=== PATIENT | male | born 1945 | race Caucasian/White ===

== ENCOUNTER 2018-05-26 12:40 | Inpatient (IN) ==
--- NOTE | 2018-05-26 12:43 | Emergency Department Note ---
Disposition Clinical Impression: Pre-syncope, Bradycardia Disposition: Admitted As Inpatient Condition: Good General Adult HPI - General Stated complaint: syncope Time Seen by Provider: 05/26/18 12:42 - Related Data Home Medications Medication Instructions Recorded Confirmed Ferrous Sulfate [Iron] 325 mg PO QAM 10/06/17 05/26/18 Folic Acid 1 mg PO DAILY 10/06/17 05/26/18 Lisinopril [Zestril] 20 mg PO DAILY 10/06/17 05/26/18 Gabapentin [Neurontin] 300 mg PO TID PRN 11/21/17 05/26/18 Aspirin [Adult Aspirin Regimen] 81 mg PO DAILY 11/23/17 05/26/18 Cholecalciferol (Vitamin D3) 2,000 unit PO DAILY 11/23/17 05/26/18 [Vitamin D] Cyanocobalamin (Vitamin B-12) 500 mcg PO DAILY 11/23/17 05/26/18 [Vitamin B12] Lovastatin [Lovastatin] 60 mg PO DAILY 05/26/18 05/26/18 amLODIPine [Norvasc] 54 mg PO DAILY 05/26/18 05/26/18 Allergies Allergy/AdvReac Type Severity Reaction Status Date / Time hydrocodone [From Vicodin] AdvReac Vomiting Verified 05/26/18 14:33 meperidine [From Demerol] AdvReac Vomiting Verified 05/26/18 14:33 Oxycodone [From Percocet] AdvReac Vomiting Verified 05/26/18 14:33 Past Medical History - Past Medical History Medical history: Reports: hyperlipidemia, hypertension, kidney stones, migraine , renal disease, other Surgical history: Reports: cholecystectomy, herniorrhaphy, other Psychiatric history: Reports: no psych history - Social History Smoking Status: Never smoker Smokeless Tobacco Status: No Alcohol use: Reports: none Drug use: Reports: none Course Vital Signs Temperature 97.7 F 05/26/18 12:52 Pulse Rate 51 05/26/18 12:52 Respiratory Rate 05/26/18 12:52 Blood Pressure 117/72 05/26/18 12:52 O2 Sat by Pulse Oximetry 99 05/26/18 12:52 Temperature 98.5 F 05/26/18 15:29 Pulse Rate 61 05/26/18 16:42 Respiratory Rate 18 05/26/18 15:29 Blood Pressure 124/71 05/26/18 16:42 O2 Sat by Pulse Oximetry 97 05/26/18 15:36 Oxygen Delivery Oxygen Delivery Room Air Medical Decision Making - Lab Data Result diagrams: 05/26/18 13:03 05/26/18 13:03 Lab Results 05/26/18 05/26/18 05/26/18 Range/Units 12:57 13:03 13:03 WBC 7.1 (4.3-11.1) K/mcL RBC 4.49 (4.19-5.50) M/mcL Hgb 14.6 (12.9-16.9) g/dL Hct 42.6 (37.5-50.1) % MCV 94.9 (83.0-100.0) fL MCH 32.5 (28.0-33.3) pg MCHC 34.3 (31.6-35.5) g/dL RDW 13.7 (11.5-14.5) % Plt Count 224 (140-400) K/mcL MPV 11.2 (9.4-12.4) fL Immature Gran % 0.3 (0-4) % Seg Neutrophils % 62.2 % Lymphocytes % 24.9 % Monocytes % 9.7 % Eosinophils % 2.3 % Basophils % 0.6 % Neutrophils # 4.4 (1.6-8.9) K/mcL Lymphocytes # 1.8 (0.6-4.6) K/mcL Monocytes # 0.7 (0.0-1.3) K/mcL Eosinophils # 0.2 (0.0-0.6) K/mcL Basophils # 0.0 (0.0-0.2) K/mcL Sodium 141 (136-145) mEq/L Potassium 4.2 (3.5-5.1) mEq/L Chloride 111 H (98-107) mEq/L Carbon Dioxide 22 L (23-29) mEq/L BUN 18 (8-23) mg/dL Creatinine 1.58 H (0.70-1.30) mg/dL Est GFR ( Amer) 52 L (> 60) Est GFR (Non-Af Amer) 43 L (> 60) BUN/Creatinine Ratio 11 (6-26) Glucose 112 H (70-105) mg/dL POC Glucose 117 H (70-99) mg/dL Calculated Osmolality 295 (280-300) Calcium 9.2 (8.6-10.3) mg/dL Troponin I < 0.03 (< 0.04) ng/mL Attestation Statement - Attestation Attestation: I examined this patient and my medical decision-making was reviewed with the Resident Physician. I agree with the documented findings, disposition and treatment plan as described except to the extent set forth below. [id number] time provided Patient arrives by EMS. EMS report states the patient was standing outside a food bank when he became weak. He became pale and diaphoretic. Upon arrival the patient does not appear in any acute distress. He was evaluated in conjunction with the resident physician Dr. Ashley Quiroz
--- NOTE | 2018-05-26 12:54 | Emergency Department Note ---
Disposition Clinical Impression: Pre-syncope, Bradycardia Disposition: Admitted As Inpatient Condition: Good General Adult HPI - General Chief complaint: ED Syncope Stated complaint: syncope Time Seen by Provider: 05/26/18 12:42 Source: patient, family, EMS Mode of arrival: EMS Limitations: no limitations Nursing Notes Reviewed: Yes Vital Signs Reviewed: Yes - History of Present Illness HPI Narrative: 72-year-old male with significant past medical history of hypertension currently taking the lisinopril presenting to the emergency department with chief complaint of presyncope. Patient states today he was standing outside of the food bank when he had sudden onset of weakness and felt like he was going to pass out. Denies any chest pain, shortness of breath. Patient states he has had presyncopal episodes in the past but they have spontaneously resolved. Has never been worked up. Patient denies any cardiac history. At this time patient states he is still feeling slightly weak but denies any chest pain, shortness breath, dizziness or headache. - Related Data Home Medications Medication Instructions Recorded Confirmed Ferrous Sulfate [Iron] 325 mg PO QAM 10/06/17 11/23/17 Folic Acid 1 mg PO DAILY 10/06/17 11/23/17 Lisinopril [Zestril] 20 mg PO DAILY 10/06/17 11/23/17 Lovastatin [Altoprev] 60 mg PO QAM 10/06/17 11/23/17 Gabapentin [Neurontin] 600 mg PO TID 11/21/17 11/23/17 Amlodipine Besylate/Benazepril 1 each PO DAILY 11/23/17 11/23/17 [Lotrel 10-20 mg Capsule] Aspirin [Adult Aspirin Regimen] 81 mg PO 11/23/17 Cholecalciferol (Vitamin D3) 2,000 unit PO 11/23/17 11/23/17 [Vitamin D] Cyanocobalamin (Vitamin B-12) 500 mcg PO DAILY 11/23/17 11/23/17 [Vitamin B12] Previous Rx's Medication Instructions Recorded Tramadol HCl [Ultram] 50 mg PO QID PRN 5 Days #20 tab 11/21/17 Ondansetron ODT [Zofran ODT] 4 mg SL Q4HR PRN #15 tab.rapdis 11/23/17 Allergies Allergy/AdvReac Type Severity Reaction Status Date / Time hydrocodone [From Vicodin] AdvReac Vomiting Verified 11/21/17 07:15 meperidine [From Demerol] AdvReac Vomiting Verified 11/21/17 07:15 Oxycodone [From Percocet] AdvReac Vomiting Verified 11/21/17 07:15 All systems ED: reviewed and negative except as stated. Constitutional: Reports: weakness. Denies: fever, chills Eyes: Reports: as per HPI ENT ED: Reports: as per HPI Cardiovascular: Denies: chest pain, palpitations, dyspnea on exertion Respiratory: Denies: cough, dyspnea, wheezes Gastrointestinal: Denies: abdominal pain, nausea, vomiting Genitourinary: Reports: as per HPI Musculoskeletal: Reports: as per HPI Integumentary: Reports: as per HPI Neurological: Reports: weakness. Denies: headache, numbness, paresthesias Psychiatric: Reports: as per HPI Endocrine: Reports: as per HPI Hematological/Lymphatic: Reports: as per HPI Allergic/Immunologic: Reports: as per HPI Past Medical History - Past Medical History Attestation: Yes The following information was validated with the patient. Medical history: Reports: hyperlipidemia, hypertension, kidney stones, migraine , renal disease, other Surgical history: Reports: cholecystectomy, herniorrhaphy, other Psychiatric history: Reports: no psych history - Social History Smoking Status: Never smoker Smokeless Tobacco Status: No Alcohol use: Reports: none Drug use: Reports: none Physical Exam - General Limitations: no limitations General appearance: alert, in no apparent distress - Head Head exam: atraumatic, normocephalic, normal inspection - Eye Eye exam: Present: normal appearance. Absent: scleral icterus, conjunctival injection - ENT ENT exam: mucous membranes dry - Neck Neck exam: Present: normal inspection, full ROM. Absent: tenderness, meningismus - Chest Chest inspection: Present: normal inspection, symmetric chest wall rise. Absent : tenderness, rash - Respiratory Respiratory exam: Present: normal lung sounds bilaterally. Absent: respiratory distress, wheezes - Cardiovascular Cardiovascular exam: Present: normal rhythm, bradycardia, normal heart sounds - Abdominal Exam Abdominal exam: Present: soft, Non-Tender. Absent: distention, guarding, rebound - Extremities Exam Extremities exam: Present: normal inspection, full ROM - Neurological Exam Neurological exam: Present: alert, oriented X3 - Psychiatric Psychiatric exam: Present: normal affect, normal mood - Skin Skin exam: Present: warm Course Course Narrative: 72-year-old male presenting to the emergency department chief complaint presyncope. On physical exam patient is bradycardic but otherwise physical exam is benign. Blood pressure stable. He is alert and oriented 3 in the room. Due to patient's presyncope will obtain basic laboratory analysis along with EKG, troponin and chest x-ray. Disposition pending results. Patient agrees with this plan. - Reevaluation(s) Reevaluation #1: Patient's laboratory analysis shows chronic kidney disease. Chest x-ray benign. Patient has remained bradycardic in the room. Denies ever being told he has had bradycardia in the past. Due to patient's presyncope and bradycardia we will plan to admit him for further evaluation and cardiac monitoring. Patient is alert and oriented 3 in the room. at bedside. Patient and agree with this plan. I spoke with the hospitalist on-call who agrees to accept the patient at this time. Patient has received 1 L fluid bolus resuscitation in the emergency department. Vital Signs Temperature 97.7 F 05/26/18 12:52 Pulse Rate 51 05/26/18 12:52 Respiratory Rate 15 05/26/18 12:52 Blood Pressure 117/72 05/26/18 12:52 O2 Sat by Pulse Oximetry 99 05/26/18 12:52 Temperature 97.7 F 05/26/18 13:01 Pulse Rate 54 05/26/18 13:01 Respiratory Rate 15 05/26/18 13:01 Blood Pressure 117/72 05/26/18 13:01 O2 Sat by Pulse Oximetry 95 05/26/18 13:01 Oxygen Delivery Oxygen Delivery Room Air Medical Decision Making - Lab Data Result diagrams: 05/26/18 13:03 05/26/18 13:03 Lab Results 05/26/18 05/26/18 05/26/18 Range/Units 12:57 13:03 13:03 WBC 7.1 (4.3-11.1) K/mcL RBC 4.49 (4.19-5.50) M/mcL Hgb 14.6 (12.9-16.9) g/dL Hct 42.6 (37.5-50.1) % MCV 94.9 (83.0-100.0) fL MCH 32.5 (28.0-33.3) pg MCHC 34.3 (31.6-35.5) g/dL RDW 13.7 (11.5-14.5) % Plt Count 224 (140-400) K/mcL MPV 11.2 (9.4-12.4) fL Immature Gran % 0.3 (0-4) % Seg Neutrophils % 62.2 % Lymphocytes % 24.9 % Monocytes % 9.7 % Eosinophils % 2.3 % Basophils % 0.6 % Neutrophils # 4.4 (1.6-8.9) K/mcL Lymphocytes # 1.8 (0.6-4.6) K/mcL Monocytes # 0.7 (0.0-1.3) K/mcL Eosinophils # 0.2 (0.0-0.6) K/mcL Basophils # 0.0 (0.0-0.2) K/mcL Sodium 141 (136-145) mEq/L Potassium 4.2 (3.5-5.1) mEq/L Chloride 111 H (98-107) mEq/L Carbon Dioxide 22 L (23-29) mEq/L BUN 18 (8-23) mg/dL Creatinine 1.58 H (0.70-1.30) mg/dL Est GFR ( Amer) 52 L (> 60) Est GFR (Non-Af Amer) 43 L (> 60) BUN/Creatinine Ratio 11 (6-26) Glucose 112 H (70-105) mg/dL POC Glucose 117 H (70-99) mg/dL Calculated Osmolality 295 (280-300) Calcium 9.2 (8.6-10.3) mg/dL Troponin I < 0.03 (< 0.04) ng/mL - EKG Data EKG #1 EKG attestation: Yes I reviewed and interpreted this EKG. EKG results narrative: Sinus bradycardia. 49 bpm. WA interval 173, QRS 101, QTC 423. Left axis deviation. No sign of acute ST segment elevation or ischemia. Compared to previous EKG completed on 11/20/2017 new sinus bradycardia.
[2018-05-26 13:16] LABS: Basophils % 0.6 %; Eosinophils # 0.2 K/mcL (0.0-0.6); Eosinophils % 2.3 %; Hematocrit 42.6 % (37.5-50.1); Hemoglobin 14.6 g/dL (12.9-16.9); Immature Granulocytes % 0.3 % (0-4); Lymphocytes # 1.8 K/mcL (0.6-4.6); Lymphocytes % 24.9 %; Mean Corpuscular HGB Conc 34.3 g/dL (31.6-35.5); Mean Corpuscular Hemoglobin 32.5 pg (28.0-33.3); Mean Corpuscular Volume 94.9 fL (83.0-100.0); Mean Platelet Volume 11.2 fL (9.4-12.4); Monocytes # 0.7 K/mcL (0.0-1.3); Monocytes % 9.7 %; Neutrophils # 4.4 K/mcL (1.6-8.9); Platelet Count 224 K/mcL (140-400); Red Blood Count 4.49 M/mcL (4.19-5.50); Red Cell Distribution Width 13.7 % (11.5-14.5); Segmented Neutrophils % 62.2 %
[2018-05-26 13:36] LABS: BUN/Creatinine Ratio 11 (6-26); Blood Urea Nitrogen 18 mg/dL (8-23); Calcium 9.2 mg/dL (8.6-10.3); Carbon Dioxide 22 mEq/L (23-29); Chloride 111 mEq/L (98-107); Glucose 112 mg/dL (70-105); Osmolality,Calculated 295 (280-300); Potassium 4.2 mEq/L (3.5-5.1); Sodium 141 mEq/L (136-145); Troponin I < 0.03 ng/mL (< 0.04); eGFR For Non-African Americans 43 (> 60)
[2018-05-26] MEDS ORDERED: Naloxone 0.4 MG/ML INJ IVP PRN (16:31)
[2018-05-26] MEDS ORDERED: 0.9 % Sodium Chloride 1,000 ML IVC SCH (16:45)
--- NOTE | 2018-05-26 16:55 | Internal Med History&Physical ---
Date of Encounter: 05/28/18 Time of Encounter: 16:49 Internal Medicine - H&P: HPI Chief complaint: syncope Admitted From: Emergency Dept Plans for Post Hospital Care: Home History of present illness: Mr. Leahy is a 72 year old male past history of CKG stage III hypertension hyperlipidemia kidney stones-patient presented to [facility] ED after he was standing outside in the sun when he has sudden onset of weakness and thousand he is going to pass out. He denied any chest pain palpitations shortness of breath or headaches prior to the episode. He did complain of lightheadedness and nausea prior to the episode he was going to pass out so he sat down and the episode passed. Patient states he has had presyncopal episodes in the past however they resolve spontaneously. He denies any cardiac history. He does admit that he was recently ill and was seen at urgent care and diagnosed with sinusitis. He has been taking antibiotics and Tessalon Perles. He also admits that he has not been drinking a lot of water today. In the ER EKG did show sinus bradycardia lab work does show some chronic CKD chest x-ray with no acute process. Patient was given IV fluids which he states he did feel better. He has been admitted for further workup and evaluation. Currently patient does complain of lightheadedness with positional changes. Denies any pain or discomfort at this time. He seemed to be medically stable at this time I did review this case with who agrees with plan. Past Med Surg Social Fam HX - Past Medical History Medical history: hyperlipidemia, hypertension, kidney stones, migraine, renal disease, other Additional medical history: Low iron Psychiatric history: no psych history - Past Surgical History Surgical History: cholecystectomy, herniorrhaphy, other - Social History Smoking Status: Never smoker Smokeless Tobacco Status: No Alcohol use: none Drug use: none - Family History Father Living Status: Cause of : heart failure Mother Living Status: Age at : 100 Cause of : htn Internal Medicine - H&P: Meds Ferrous Sulfate [Iron] 325 mg PO QAM 10/06/17 [History] Folic Acid 1 mg PO DAILY 10/06/17 [History] Lisinopril [Zestril] 20 mg PO DAILY 10/06/17 [History] Gabapentin [Neurontin] 300 mg PO TID PRN 11/21/17 [History] Aspirin [Adult Aspirin Regimen] 81 mg PO DAILY 11/23/17 [History] Cholecalciferol (Vitamin D3) [Vitamin D] 2,000 unit PO DAILY 11/23/17 [History] Cyanocobalamin (Vitamin B-12) [Vitamin B12] 500 mcg PO DAILY 11/23/17 [History] Lovastatin [Lovastatin] 60 mg PO DAILY 05/26/18 [History] amLODIPine [Norvasc] 54 mg PO DAILY 05/26/18 [History] 3 Allergy/AdvReac Type Severity Reaction Status Date / Time hydrocodone [From Vicodin] AdvReac Vomiting Verified 05/26/18 14:33 meperidine [From Demerol] AdvReac Vomiting Verified 05/26/18 14:33 Oxycodone [From Percocet] AdvReac Vomiting Verified 05/26/18 14:33 All Systems PM: A 10-system review of systems was performed and is negative for pertinent findings except as documented above in the HPI. - Constitutional Constitutional: no chills, no fever(s), no night sweats - EENT Eyes: no change in vision, no discharge, no pain, no photophobia Ears: no ear discharge, no ear pain, no tinnitus Nose, mouth and throat: no dysphagia, no nasal discharge, no neck pain, no sore throat - Cardiovascular Cardiovascular ROS IM: lightheadedness, syncope, no chest pain, no diaphoresis, no dyspnea, no palpitations - Respiratory Respiratory: cough, chest congestion, no dyspnea, no wheezing, no excessive phlegm production - Gastrointestinal Gastrointestinal: no abdominal pain, no diarrhea, no hematemesis, no hematochezia, no melena, no nausea, no vomiting - Musculoskeletal Musculoskeletal ROS IM: no numbness, no tingling - Integumentary Integumentary IM: no rash, no unusual bruising - Neurological Neurological ROS: no confusion, no convulsions, no focal weakness, no numbness, no tingling, no tremor(s) - Hematologic/Lymphatic Hematologic/Lymphatic: no easy bruising - Constitutional Vitals: Temp Pulse Resp BP Pulse Ox 98.5 F 61 18 124/71 97 05/26/18 15:29 05/26/18 16:42 05/26/18 15:29 05/26/18 16:42 05/26/18 15:36 General appearance: Present: A&O X 3 Exam: see above - Head Head exam: Present: atraumatic, normocephalic - Eye Eye exam: Present: PERRL, conjuntiva pink, sclera anicteric Pupils: Present: PERRL - Neck Neck exam general surgery: Present: supple, trachea midline. Absent: lymphadenopathy - Respiratory Respiratory exam: Present: CTAB. Absent: accessory muscle use, rales, rhonchi, wheezes - Cardiovascular Cardiovascular exam: Present: RRR, +S1, +S2. Absent: diastolic murmur, gallop, rubs, systolic murmur - GI/Abdominal GI/Abdominal exam: Present: normal bowel sounds, soft, no peritoneal signs. Absent: distended, tenderness - Extremities Exam Extremities exam: Present: warm, radial pulses palpable and symmetrical. Absent : calf tenderness, cyanotic, pedal edema - Neurological Exam Neurological exam: Present: CN II-XII intact, oriented X3, no focal deficits. Absent: pronater drift, facial droop, speech deficit - Skin Skin exam: Present: dry, intact Internal Med - H&P Results - Labs CBC & Chem 7: 05/28/18 07:06 05/28/18 07:06 - EKG Data EKG shows normal: sinus rhythm Rate: bradycardia - Diagnostic Studies Chest x-ray Additional comments: Chest X-Ray 05/26/18 12:47 IMPRESSION: Cardiomegaly without acute process. D/ / 05/26/2018 14:23:41 Bj Spencer MD / carly Interpreting Provider: Bj Spencer MD - Assessment and plan (1) Pre-syncope Current Visit: Yes Status: Acute Assessment and plan: Patient did experience an episode where he felt lightheaded as if he was going pass out he did sit down without losing consciousness. He states he has had episodes like this in the past and they have resolved on their own. He does admit that he has been ill and was recently diagnosed with sinusitis he did complete antibiotic treatment as well as Tessalon Perles. He also admits that he has not consumed a large amount of water today and has been standing out in the sun. EKG shows some bradycardia he denied any chest pain. Continuous cardiac monitoring Cardiac echo Orthostatic vital signs We will give 1 more liter of fluid Fall precautions Carotid Doppler (2) CKD (chronic kidney disease) Current Visit: Yes Status: Acute Assessment and plan: 1 history of CK disease stage III appears his baseline is 1.4-1.5. He appears to be around baseline at this time We will continue to monitor creatinine Avoid nephrotoxins Monitor intake and output daily weights Qualifiers: Chronic kidney disease stage: stage 3 (moderate) Qualified Code(s): N18.3 - Chronic kidney disease, stage 3 (moderate) (3) Bradycardia Current Visit: Yes Status: Acute Assessment and plan: 1 appears patient's heart rate is 49-50 sinus. Patient states he does have a slow heart rate at has never officially been worked up. We will continue cardiac monitoring Check EKG in the a.m. Obtain cardiac echo - Time Spent With Patient Total time spent is greater than 50% in coordination of care (as documented) at patient's floor/unit and/or counseling patient:
[2018-05-27 06:31] LABS: Basophils # 0.1 K/mcL (0.0-0.2); Basophils % 0.8 %; Eosinophils # 0.2 K/mcL (0.0-0.6); Eosinophils % 2.4 %; Hemoglobin 13.9 g/dL (12.9-16.9); Immature Granulocytes % 0.6 % (0-4); Lymphocytes # 1.9 K/mcL (0.6-4.6); Lymphocytes % 24.6 %; Mean Corpuscular HGB Conc 33.1 g/dL (31.6-35.5); Mean Corpuscular Hemoglobin 30.9 pg (28.0-33.3); Mean Corpuscular Volume 93.3 fL (83.0-100.0); Mean Platelet Volume 10.9 fL (9.4-12.4); Monocytes # 0.7 K/mcL (0.0-1.3); Monocytes % 8.7 %; Platelet Count 235 K/mcL (140-400); Segmented Neutrophils % 62.9 %
[2018-05-27 06:50] LABS: BUN/Creatinine Ratio 12 (6-26); Blood Urea Nitrogen 17 mg/dL (8-23); Calcium 9.2 mg/dL (8.6-10.3); Carbon Dioxide 20 mEq/L (23-29); Chloride 111 mEq/L (98-107); Chol/HDL Ratio 3.7 (0-4.9); Cholesterol 126 mg/dL (< 200); Glucose 99 mg/dL (70-105); HDL Cholesterol 34 mg/dL (40-59); LDL Cholesterol,Calculated 61 mg/dL (0-99); Magnesium 2.2 mg/dL (1.6-2.6); Osmolality,Calculated 292 (280-300); Sodium 140 mEq/L (136-145); Triglycerides 157 mg/dL (< 150); eGFR For Non-African Americans 51 (> 60)
--- NOTE | 2018-05-27 12:15 | Internal Med Progress Note ---
Hospitalist Progress Note - Encounter Date of Encounter: 05/27/18 Time of Encounter: 12:12 - Subjective Interval History: Patient seen and examined at bedside. Patient no acute overnight events. Discussed yesterday's events with patient and family who states that he was overheated outside on hot pavement. Patient states he was not drinking water and was dehydrated. Patient was given IV fluids and feels much better today. He feels like his normal self. Echocardiogram and ultrasound of the carotids were ordered and is pending. We will follow up on these studies tomorrow and observe the patient today and anticipate discharge tomorrow. Patient noted be in sinus bradycardia upon admission family states that this is chronic and he is typically in the 40s to 60s. Patient denies any chest pain, shortness breath , nausea, vomiting, diarrhea. - Exam Vitals: Temp Pulse Resp BP Pulse Ox 97.8 F 51 17 143/74 97 05/27/18 11:30 05/27/18 11:30 05/27/18 11:30 05/27/18 11:30 05/27/18 11:30 Exam: Constitutional: No acute distress, Alert Psych: AAO x 3 HEENT: NCAT, EOMI Neck: supple, no JVD Cardio: regular and bradycadic is 50s, +s1s2, no murmurs/rubs/gallops, no JVD Resp: clear to ascultation bilaterally, no wheezes/rales/ronchi Abd: soft, non tender/non distended, positive bowel sounds Extremities: no clubbing/cyanosis/edema appreciated Neuro: no focal deficits appreciated - Assessment and Plan (1) Pre-syncope Current Visit: Yes Status: Acute Assessment and Plan: Suspect orthostasis although orthostatics were negative versus vasovagal and intravascular volume depletion due to dehydration -No further episodes, patient feels fine now -Echocardiogram and ultrasound of the carotids pending -Patient received IV fluids and feels much better -Renal function improved better than baseline -Continue observation today and anticipate discharge tomorrow -Sinus bradycardia is chronic per family (2) Bradycardia Current Visit: Yes Status: Acute Assessment and Plan: Patient noted to have sinus bradycardia -This is chronic per family and asymptomatic (3) CKD (chronic kidney disease) Current Visit: Yes Status: Acute Assessment and Plan: -Pt with history of CK disease stage III appears his baseline is 1.4-1.5. -He appears to be around baseline at this time -serum creatinine improved today -no need for further IVF -Avoid nephrotoxins DVT Prophylaxis: Subcutaneous heparin - Time Spent with Patient Total time spent is greater than 50% in coordination of care (as documented) at patient's floor/unit and/or counseling patient: less than 15 minutes Plan of Care Discussed with: patient Internal Medicine: Result - Labs CBC & Chem 7: 05/27/18 06:07 05/27/18 06:07 Labs: Short CBC 05/27/18 Range/Units 06:07 WBC 7.9 (4.3-11.1) K/mcL Hgb 13.9 (12.9-16.9) g/dL Hct 42.0 (37.5-50.1) % Plt Count 235 (140-400) K/mcL Neutrophils # 5.0 (1.6-8.9) K/mcL BMP 05/27/18 06:07 Sodium 140 Potassium 4.0 Chloride 111 H Carbon Dioxide 20 L BUN 17 Creatinine 1.37 H Glucose 99 Calcium 9.2 Consult Discharge Plan - Plan Referrals: Cortes Samano DO [Primary Care Provider] - (3) CKD (chronic kidney disease) Qualifiers: Chronic kidney disease stage: stage 3 (moderate) Qualified Code(s): N18.3 - Chronic kidney disease, stage 3 (moderate)
[2018-05-27] MEDS: *HR* Heparin 5,000 UNIT/ML VIAL SQ SCH ×2 (15:23→21:15)
[2018-05-27] MEDS: Aspirin Enteric Coated 81 MG Tablet PO SCH (15:23)
[2018-05-28] MEDS: *HR* Heparin 5,000 UNIT/ML VIAL SQ SCH ×3 (06:12→22:19)
[2018-05-28] MEDS: Aspirin Enteric Coated 81 MG Tablet PO SCH (07:45)
[2018-05-28 08:10] LABS: Basophils # 0.1 K/mcL (0.0-0.2); Basophils % 0.7 %; Eosinophils # 0.3 K/mcL (0.0-0.6); Eosinophils % 3.6 %; Hematocrit 42.4 % (37.5-50.1); Immature Granulocytes % 0.7 % (0-4); Lymphocytes # 2.4 K/mcL (0.6-4.6); Lymphocytes % 32.9 %; Mean Corpuscular Hemoglobin 31.9 pg (28.0-33.3); Mean Corpuscular Volume 96.6 fL (83.0-100.0); Mean Platelet Volume 11.6 fL (9.4-12.4); Monocytes # 0.7 K/mcL (0.0-1.3); Monocytes % 9.6 %; Neutrophils # 3.9 K/mcL (1.6-8.9); Platelet Count 239 K/mcL (140-400); Red Blood Count 4.39 M/mcL (4.19-5.50); Red Cell Distribution Width 13.9 % (11.5-14.5); Segmented Neutrophils % 52.5 %
[2018-05-28 08:21] LABS: Calcium 8.9 mg/dL (8.6-10.3); Phosphorous 2.3 mg/dL (2.7-4.5); Potassium 3.9 mEq/L (3.5-5.1)
[2018-05-28] MEDS: Acetaminophen 325 MG TABLET PO PRN (09:48)
--- NOTE | 2018-05-28 09:48 | Internal Med Progress Note ---
Hospitalist Progress Note - Encounter Date of Encounter: 05/28/18 Time of Encounter: 09:40 - Subjective Interval History: Patient seen and examined at bedside. Patient no acute overnight events. Patient states that he continues to feel fine. I explained the results of his echocardiogram. Expand him that we will obtain a EWELINA tomorrow and he is in agreement with this. Patient denies any chest pain, shortness breath, palpitations, nausea, vomiting, diarrhea. - Exam Vitals: Temp Pulse Resp BP Pulse Ox 98.2 F 51 16 129/75 96 05/28/18 06:44 05/28/18 06:44 05/28/18 06:44 05/28/18 06:44 05/28/18 06:44 Exam: Constitutional: No acute distress, Alert Psych: AAO x 3 HEENT: NCAT, EOMI Neck: supple, no JVD Cardio: regular and bradycadic is 50s, +s1s2, no murmurs Resp: clear to ascultation bilaterally, no wheezes/rales/ronchi Abd: soft, non tender/non distended, positive bowel sounds Extremities: no clubbing/cyanosis/edema appreciated Neuro: no focal deficits appreciated - Assessment and Plan (1) Pre-syncope Current Visit: Yes Status: Acute Assessment and Plan: Suspect orthostasis although orthostatics were negative versus vasovagal and intravascular volume depletion due to dehydration -No further episodes, patient feels fine now -Patient received IV fluids and feels much bettere -Sinus bradycardia is chronic per family -echocardiogram with mildly dilated aortic root and ascending aorta -cannot obtain CTA due to CKD; will get EWELINA in am to evaluate and measure aorta (2) Bradycardia Current Visit: Yes Status: Acute Assessment and Plan: Patient noted to have sinus bradycardia -This is chronic per family and asymptomatic (3) CKD (chronic kidney disease) Current Visit: Yes Status: Acute Assessment and Plan: -Pt with history of CK disease stage III appears his baseline is 1.4-1.5. -He appears to be around baseline at this time -serum creatinine slightly up today 1.54; still at baseline -will give 1L of 1/2ns -Avoid nephrotoxins DVT Prophylaxis: Subcutaneous heparin - Summary of Assessment and Plan Summary of Assessment and Plan: TTE with mildly dilated aortic root/aorta. Will obtain EWELINA in a.m., nothing by mouth at midnight. - Time Spent with Patient Total time spent is greater than 50% in coordination of care (as documented) at patient's floor/unit and/or counseling patient: 25 - 35 minutes Plan of Care Discussed with: patient Internal Medicine: Result - Labs CBC & Chem 7: 05/28/18 07:06 05/28/18 07:06 Labs: Short CBC 05/28/18 Range/Units 07:06 WBC 7.3 (4.3-11.1) K/mcL Hgb 14.0 (12.9-16.9) g/dL Hct 42.4 (37.5-50.1) % Plt Count 239 (140-400) K/mcL Neutrophils # 3.9 (1.6-8.9) K/mcL BMP 05/28/18 07:06 Sodium 140 Potassium 3.9 Chloride 111 H Carbon Dioxide 25 BUN 21 Creatinine 1.54 H Glucose 87 Calcium 8.9 - Impressions Impressions Echocardiogram 05/27/18 16:36 Impressions: LVEF 55%. Normal LV chamber size and systolic function. Mild concentric left ventricular hypertrophy. RV size and function grossly normal. No significant valvular dysfunction. Unable to estimate RVSP due to lack of TR jet. The aortic root is mildly dilated, ascending aorta mildly dilated. Results called to bed MD. Left Ventricular Wall Motion: Rest Echo Findings All wall segments showed normal motion. Findings: ECG Findings * Sinus bradycardia. Study Quality * Technically adequate exam. Left Ventricle * LVEF 55%. * Normal LV chamber size,and systolic function. * Mild concentric left ventricular hypertrophy. * Indeterminate diastolic function. * Definity echo contrast was not used. Right Ventricle * Not well visualized * Not well visualized. Size and function grossly normal. Left Atrium * Normal left atrial size. Right Atrium * Normal right atrial size. Interatrial Septum * Interatrial septum not well evaluated. Aortic Valve * Trileaflet aortic valve. * Trileaflet aortic valve with normal function. * No aortic regurgitation. * No aortic stenosis. Mitral Valve * Mild mitral regurgitation. Tricuspid Valve * Trace tricuspid regurgitation. * Tricuspid valve not well visualized. * Estimated RVSP is RV-RA gradient 15 mmHg. * Unable to estimate RVSP due to lack of TR jet. Pulmonic Valve * Mild pulmonic regurgitation. Aorta * The aortic root is mildly dilated. * The aortic root is 3.8cm cm. * Ascending aorta mildly dilated 3.8cm at 4cm above aortic valve Pericardium * The pericardium appears normal. IVC * The IVC is not well evaluated. Consult Discharge Plan - Plan Referrals: Cortes Samano DO [Primary Care Provider] - 06/05/18 1:30 pm (Please follow up as schedule...) (3) CKD (chronic kidney disease) Qualifiers: Chronic kidney disease stage: stage 3 (moderate) Qualified Code(s): N18.3 - Chronic kidney disease, stage 3 (moderate)
[2018-05-29] MEDS: *HR* Heparin 5,000 UNIT/ML VIAL SQ SCH ×3 (06:06→21:35)
[2018-05-29 07:23] LABS: Alanine Aminotransferase 12 Units/L (7-52); Albumin 3.7 g/dL (3.5-5.7); Albumin/Globulin Ratio 1.5 (1.1-2.2); Alkaline Phosphatase 55 Units/L (34-104); Aspartate Amino Transferase 13 Units/L (13-39); BUN/Creatinine Ratio 12 (6-26); Bilirubin,Total 0.4 mg/dL (0.3-1.0); Blood Urea Nitrogen 16 mg/dL (8-23); Calcium 8.9 mg/dL (8.6-10.3); Carbon Dioxide 21 mEq/L (23-29); Chloride 112 mEq/L (98-107); Globulin 2.5 g/dL (2.4-3.5); Glucose 88 mg/dL (70-105); Osmolality,Calculated 289 (280-300); Potassium 4.1 mEq/L (3.5-5.1); Sodium 139 mEq/L (136-145); Total Protein 6.2 g/dL (6.4-8.9); eGFR For Non-African Americans 52 (> 60)
[2018-05-29] MEDS: Aspirin Enteric Coated 81 MG Tablet PO SCH (09:11)
[2018-05-29] MEDS ORDERED: Isovue-370 500 ML INFUS..BTL IV ONE (09:58)
[2018-05-29] MEDS: *HR* Acetylcysteine 20% 600 MG/3 ML ORAL SYRINGE PO SCH ×2 (11:04→21:36)
[2018-05-29] MEDS: Ringers Solution, Lactated 1,000 ML IVC SCH (11:04)
--- NOTE | 2018-05-29 11:23 | Nephrology Consult Note ---
Date of Encounter: 05/29/18 Time of Encounter: 11:14 Assessment and Plan (1) CKD (chronic kidney disease) Current Visit: Yes Status: Acute Stable CKD [address] Suárez. Avoid nephrotoxins and renal dose all medications. Mucomyst 600 mg PO BID x 4 doses (already ordered). LR infusion (already ordered). Qualifiers: Chronic kidney disease stage: stage 3 (moderate) Qualified Code(s): N18.3 - Chronic kidney disease, stage 3 (moderate) (2) Bradycardia Current Visit: Yes Status: Acute Per primary. (3) Pre-syncope Current Visit: Yes Status: Acute Per primary. History of Present Illness - Reason for Consult Consult date: 05/29/18 Chronic Kidney Disease - Chief Complaint syncope - History of Present Illness Mr. Leahy is a 72 year old male of Dr. Suárez for CKD 3. He presented to ED for syncope on Monday. PMH: hypertension hyperlipidemia kidney stones. Denies chest pain, shortness of breath, palpitations. He did admit to feeling "lightheaded and nauseous" but has not felt that way since the incident. Admits to decreased PO intake in the few days before his admission. Patient does need a CTA to rule out aortic dilation. Recommended PO mucomyst and IVF before CTA. Past Med Surg Social Fam HX - Past Medical History Medical history: hyperlipidemia, hypertension, kidney stones, migraine, renal disease, other Additional medical history: Low iron Psychiatric history: no psych history - Past Surgical History Surgical History: cholecystectomy, herniorrhaphy, other - Social History Smoking Status: Never smoker Smokeless Tobacco Status: No Alcohol use: none Drug use: none - Family History Father Living Status: Cause of : heart failure Mother Living Status: Age at : 100 Cause of : htn Medications and Allergies Ferrous Sulfate [Iron] 325 mg PO QAM 10/06/17 [History] Folic Acid 1 mg PO DAILY 10/06/17 [History] Lisinopril [Zestril] 20 mg PO DAILY 10/06/17 [History] Gabapentin [Neurontin] 300 mg PO TID PRN 11/21/17 [History] Aspirin [Adult Aspirin Regimen] 81 mg PO DAILY 11/23/17 [History] Cholecalciferol (Vitamin D3) [Vitamin D] 2,000 unit PO DAILY 11/23/17 [History] Cyanocobalamin (Vitamin B-12) [Vitamin B12] 500 mcg PO DAILY 11/23/17 [History] Lovastatin [Lovastatin] 60 mg PO DAILY 05/26/18 [History] amLODIPine [Norvasc] 54 mg PO DAILY 05/26/18 [History] 3 Allergy/AdvReac Type Severity Reaction Status Date / Time hydrocodone [From Vicodin] AdvReac Vomiting Verified 05/26/18 14:33 meperidine [From Demerol] AdvReac Vomiting Verified 05/26/18 14:33 Oxycodone [From Percocet] AdvReac Vomiting Verified 05/26/18 14:33 Review of Systems Constitutional: no chills, no fatigue, no fever(s) Cardiovascular: no chest pain, no dyspnea, no lightheadedness Respiratory: no cough, no dyspnea Exam - Vital Signs Vital signs: Initial Vital Signs Temp Pulse Resp BP Pulse Ox 97.7 F 51 15 117/72 99 05/26/18 12:52 05/26/18 12:52 05/26/18 12:52 05/26/18 12:52 05/26/18 12:52 Vital Signs - Last 8 Hours Temp Pulse Resp BP Pulse Ox 05/29/18 10:28 97.8 F 51 17 152/88 97 05/29/18 06:52 97.7 F 54 16 138/86 98 05/29/18 05:38 97.9 F 52 18 147/80 96 Intake and Output 05/28/18 05/29/18 05/29/18 23:59 07:59 15:59 Intake Total 1000 / 1000 Output Total 100 / 100 250 / 250 Balance -100 / -100 750 / 750 Intake: IV Fluids 1000 / 1000 0.45% Sodium Chloride 1000 Ml 1000 / 1000 1000 Ml 1,000 ML @ 60 mls/hr IVC .[id number] [facility] Rx#:[id number] Oral 0 / 0 Output: Urine 100 / 100 250 / 250 Other: Weight 98.4 kg Patient Weight 05/29/18 23:59 Weight 98.4 kg - General Appearance General appearance: well-developed, well-nourished EENT: ATNC, hearing intact, vision intact Neck: supple Cardiology: edema, normal S1, normal S2 Gastrointestinal: normoactive bowel sounds, no tenderness Integumentary: no rash, warm and dry Neurologic: alert and oriented x3 Psychiatric: mood/affect appropriate, cooperative Results - Lab Results 05/28/18 07:06 05/29/18 06:29 Most recent lab results Calcium 8.9 mg/dL (8.6-10.3) 05/29/18 06:29 Phosphorus 2.3 mg/dL (2.7-4.5) L 05/28/18 07:06 Magnesium 2.0 mg/dL (1.6-2.6) 05/28/18 07:06 Consult Discharge Plan - Plan Referrals: Cortes Samano DO [Primary Care Provider] - 06/05/18 1:30 pm (Please follow up as schedule...)
--- NOTE | 2018-05-29 14:32 | Internal Med Progress Note ---
Hospitalist Progress Note - Encounter Date of Encounter: 05/29/18 Time of Encounter: 14:30 - Subjective Interval History: Patient seen and evaluated earlier today. Was lying in bed. Comfortable. Denies any chest pain or palpitations. No shortness of breath. No new episodes of dizziness or lightheadedness. No nausea or vomiting. - Exam Vitals: Temp Pulse Resp BP Pulse Ox 97.8 F 51 17 152/88 97 05/29/18 10:28 05/29/18 10:28 05/29/18 10:05/29/18 10:05/29/18 10:28 Exam: General: Patient is alert, no acute distress, oriented x 3 Respiratory: Good respiratory effort. Normal breath sounds. No wheezing or crackles. Cardiovascular: Regular rate and rhythm. s1 and s2 normal No clicks, rubs, gallops, or murmurs. No pedal edema Abdomen: Abdomen is soft, nontender. Bowel sounds are present Musculoskeletal: Spontaneously moving all extremities Skin: warm, dry, intact. Neuro: Alert oriented x 3 normal cranial nerves, no focal deficits - Assessment and Plan (1) Pre-syncope Current Visit: Yes Status: Acute Assessment and Plan: Improved. No new episodes of dizziness or lightheadedness. Most likely due to dehydration/heat exhaustion. (2) Bradycardia Current Visit: Yes Status: Acute Assessment and Plan: Chronic. Stable. Not on any rate controlling medications. (3) CKD (chronic kidney disease) Current Visit: Yes Status: Chronic Assessment and Plan: Acute kidney injury on chronic kidney disease stage III. Improved. Creatinine 1.34 today. Consult with nephrology as patient will be receiving intravenous dye for CT angiogram. We will prepare for contrast with acetylcysteine and IV fluids. (4) Aortic root dilation Current Visit: Yes Status: Acute Assessment and Plan: Aortic root mildly dilated and ascending aorta mildly dilated per echocardiogram. Discussed with cardiology. Recommend CT angiogram and said of trans-esophageal echocardiogram given the higher sensitivity and specificity of this study. We will prepare for contrast with acetylcysteine and IV fluids. Follow renal function closely. - Time Spent with Patient Total time spent is greater than 50% in coordination of care (as documented) at patient's floor/unit and/or counseling patient: Internal Medicine: Result - Labs CBC & Chem 7: 05/28/18 07:06 09/18/18 06:29 Labs: BMP 05/29/18 06:29 Sodium 139 Potassium 4.1 Chloride 112 H Carbon Dioxide 21 L BUN 16 Creatinine 1.34 H Glucose 88 Calcium 8.9 Liver Function 05/29/18 Range/Units 06:29 Total Bilirubin 0.4 (0.3-1.0) mg/dL AST 13 (13-39) Units/L ALT 12 (7-52) Units/L Alkaline Phosphatase 55 (34-104) Units/L Albumin 3.7 (3.5-5.7) g/dL Consult Discharge Plan - Plan Referrals: Cortes Samano DO [Primary Care Provider] - 06/05/18 1:30 pm (Please follow up as schedule...) (3) CKD (chronic kidney disease) Qualifiers: Chronic kidney disease stage: stage 3 (moderate) Qualified Code(s): N18.3 - Chronic kidney disease, stage 3 (moderate)
[2018-05-29] MEDS: Acetaminophen 325 MG TABLET PO PRN (14:41)
--- NOTE | 2018-05-29 17:59 | Electrocardiograph Report ---
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
[2018-05-30] MEDS: *HR* Heparin 5,000 UNIT/ML VIAL SQ SCH ×2 (05:24→14:00)
[2018-05-30] MEDS: Ringers Solution, Lactated 1,000 ML IVC SCH (05:26)
[2018-05-30 06:05] LABS: Bilirubin,Urine Negative (Negative); Blood,Urine Moderate (Negative); Clarity,Urine Clear (Clear); Color,Urine Yellow (Yellow); Glucose,Urine (UA) Normal (Normal); Ketones,Urine Negative (Negative); Leukocyte Esterase,Urine Negative (Negative); Nitrite,Urine Negative (Negative); Protein,Urine Trace mg/dL (Neg-Trace); Specific Gravity,Urine 1.025 (1.010-1.025); Urobilinogen,Urine Normal (Normal)
[2018-05-30 06:07] LABS: Bacteria,Urine None Seen per hpf (None-Few); Hyaline Casts,Urine None Seen per lpf (None-Few); Squamous Epithelial Cell,Urine Moderate per lpf (None-Few); WBC,Urine 0-3 per hpf (0-3)
[2018-05-30 07:02] LABS: Calcium 8.9 mg/dL (8.6-10.3); Potassium 3.9 mEq/L (3.5-5.1)
[2018-05-30] MEDS: Aspirin Enteric Coated 81 MG Tablet PO SCH (08:02)
[2018-05-30] MEDS: *HR* Acetylcysteine 20% 600 MG/3 ML ORAL SYRINGE PO SCH (08:02)
--- NOTE | 2018-05-30 10:21 | Nephrology Progress Note ---
Date of Encounter: 05/30/18 Time of Encounter: 10:20 - Assessment and Plan (1) CKD (chronic kidney disease) Current Visit: Yes Status: Chronic Stable CKD [address] Suárez. Avoid nephrotoxins and renal dose all medications. Slight bump in Scr but that is expected with IV contrast. May go home from a renal standpoint. BMP in 7 days. F/U with Dr. Suárze in 4-6 weeks. Qualifiers: Chronic kidney disease stage: stage 3 (moderate) Qualified Code(s): N18.3 - Chronic kidney disease, stage 3 (moderate) (2) Bradycardia Current Visit: Yes Status: Acute Per primary. (3) Pre-syncope Current Visit: Yes Status: Acute Appears resolved, per primary. Subjective Principal diagnosis: syncope Interval history: Pt seen and examined, doing well. Denies nausea/vomiting/diarrhea. Objective - Vital Signs Vital signs: Vital Signs Temp Pulse Resp BP Pulse Ox 05/30/18 08:05 95 05/30/18 07:09 97.7 F 50 18 140/79 95 05/30/18 04:35 98.1 F 51 17 138/77 96 05/30/18 00:34 98.3 F 62 17 139/79 95 05/29/18 20:43 98.6 F 59 17 147/87 94 05/29/18 15:18 98.0 F 53 17 147/82 96 05/29/18 10:28 97.8 F 51 17 152/88 97 Intake and Output 05/29/18 05/30/18 05/30/18 23:59 07:59 15:59 Intake Total 480 / 480 800 / 800 Output Total 0 / 0 400 / 400 Balance 480 / 480 400 / 400 Intake: IV Fluids 800 / 800 Lactated Ringers 1,000 ML @ 60 800 / 800 mls/hr IVC .[id number] [facility] Rx#: [id number] Oral 480 / 480 Output: Urine 0 / 0 400 / 400 Other: Meal Dinner Percent of Meal Consumed 100% Weight 97.3 kg Patient Weight 05/30/18 23:59 Weight 97.3 kg - General Appearance General appearance: Present: well-developed, well-nourished EENT: Present: ATNC, hearing intact, vision intact Neck: Present: supple Respiratory: Present: clear Cardiology: Present: no edema, normal S1, normal S2 Gastrointestinal: Present: normoactive bowel sounds, no tenderness, no guarding Integumentary: Present: no rash, warm and dry Neurologic: Present: alert and oriented x3 Psychiatric: Present: mood/affect appropriate, cooperative - Lab 05/28/18 07:06 05/30/18 04:07 Most recent lab results Calcium 8.9 mg/dL (8.6-10.3) 05/30/18 04:07 Phosphorus 2.3 mg/dL (2.7-4.5) L 05/28/18 07:06 Magnesium 2.0 mg/dL (1.6-2.6) 05/28/18 07:06 Consult Discharge Plan - Plan Instructions: Atorvastatin (By mouth) Referrals: Cortes Samano DO [Primary Care Provider] - 06/05/18 1:30 pm (Please follow up as schedule...)
[2018-05-30 11:11] VITALS: BP 127/81
--- NOTE | 2018-05-30 14:11 | Discharge Summary ---
- NOTES TO OUTPATIENT PROVIDER Notes to Outpatient Provider: Patient was hospitalized for presyncope most likely related to heat exhaustion/dehydration along with acute kidney injury. He was treated with IV fluids and his symptoms have improved since then. 2-D echocardiogram showed EF of 55% with mildly dilated aortic root and ascending aorta. This was further evaluated with a CT angiogram which showed dilation of the aortic root up to 4.2 cm in size. This will need to be followed up as outpatient. Patient did receive intravenous contrast and nephrology was on board to help manage this given patient's chronic kidney disease. He received acetylcysteine and IV fluids. He has been cleared for discharge by nephrology and will follow up with nephrology as outpatient. Date of Encounter: 05/30/18 Time of Encounter: 14:11 - Discharge Diagnosis (1) Pre-syncope Priority: Primary Status: Acute (2) Bradycardia Priority: Secondary Status: Acute (3) CKD (chronic kidney disease) Priority: Secondary Status: Chronic Qualifiers: Chronic kidney disease stage: stage 3 (moderate) Qualified Code(s): N18.3 - Chronic kidney disease, stage 3 (moderate) (4) Aortic root dilation Priority: Secondary Status: Acute Hospital course: Mr. Leahy is a 72 year old male Patient with history of chronic kidney disease who was hospitalized for presyncope most likely related to heat exhaustion/ dehydration along with acute kidney injury. He was treated with IV fluids and his symptoms have improved since then. 2-D echocardiogram showed EF of 55% with mildly dilated aortic root and ascending aorta. This was further evaluated with a CT angiogram which showed dilation of the aortic root up to 4.2 cm in size. This will need to be followed up as outpatient. Patient did receive intravenous contrast and nephrology was on board to help manage this given patient's chronic kidney disease. He received acetylcysteine and IV fluids. He has been cleared for discharge by nephrology and will follow up with nephrology as outpatient. Discharge discussed with: patient, family, nurse - Time Spent with Patient Total time spent providing and/or coordinating discharge services: Greater than 30 minutes (40 min) - Discharge Medications Home Medications: Ferrous Sulfate [Iron] 325 mg PO QAM 10/06/17 [History] Folic Acid 1 mg PO DAILY 10/06/17 [History] Lisinopril [Zestril] 20 mg PO DAILY 10/06/17 [History] Gabapentin [Neurontin] 300 mg PO TID PRN 11/21/17 [History] Aspirin [Adult Aspirin Regimen] 81 mg PO DAILY 11/23/17 [History] Cholecalciferol (Vitamin D3) [Vitamin D3] 2,000 unit PO DAILY 11/23/17 [History] Cyanocobalamin (Vitamin B-12) [Vitamin B12] 500 mcg PO DAILY 11/23/17 [History] Lovastatin 60 mg PO DAILY 05/26/18 [History] amLODIPine [Norvasc] 5 mg PO DAILY #0 05/30/18 [Rx] Allergies/Adverse Reactions: 3 Allergy/AdvReac Type Severity Reaction Status Date / Time hydrocodone [From Vicodin] AdvReac Vomiting Verified 05/26/18 14:33 meperidine [From Demerol] AdvReac Vomiting Verified 05/26/18 14:33 Oxycodone [From Percocet] AdvReac Vomiting Verified 05/26/18 14:33 Date of admission: 05/28/18 17:48 Primary care physician: Cortes Samano Consults: 05/29/18 09:55 Consult to Nephrology [CONS] Routine Consulting Provider: [facility] Palma/CHRISTINE/ROSALIA/HANSA Reason for Consult: CKD patient. Needs CTA; Time Notified: 09:56 Call Completed: Yes Discharging clinician: Tyson Staton Anticipated date of discharge: 05/30/18 - Constitutional Vitals: Temp Pulse Resp BP Pulse Ox 98.1 F 63 20 127/81 95 05/30/18 10:57 05/30/18 10:57 05/30/18 10:57 05/30/18 10:57 05/30/18 10:57 General appearance: Present: A&O X 3 Exam: General: Patient is alert, no acute distress, oriented x 3 Respiratory: Good respiratory effort. Normal breath sounds. No wheezing or crackles. Cardiovascular: Regular rate and rhythm. s1 and s2 normal No clicks, rubs, gallops, or murmurs. No pedal edema Abdomen: Abdomen is soft, nontender. Bowel sounds are present Musculoskeletal: Spontaneously moving all extremities Skin: warm, dry, intact. Neuro: Alert oriented x 3 normal cranial nerves, no focal deficits - Patient Status Disposition: Home, Self-Care Condition: Good Functional capacity at discharge: independent ambulation Overall status at discharge: patient is back to baseline - Ambulatory Orders Ambulatory Orders: Basic Metabolic Panel [CHEM] Time Frame: 1 Week, Facility: [facility], Location: Lab - Discharge Instructions Instructions: Atorvastatin (By mouth), Peripheral Vascular Disorders (DC) Follow Up With: Cortes Samano DO [Primary Care Provider] - 06/05/18 1:30 pm (Please follow up as schedule...) Eldon Kimbrough MD [Partnered Physician] - (in 1-2 weeks for follow up on aortic root dilation) Ward Woods MD [Partnered Physician] - (in 2 weeks) - Diet and Activity Activity: increase activity as tolerated Diet: advance to your usual diet
== END 2018-05-30 15:20 | disposition home or self-care (01) | DRG 684 ==
LOC: 2ANU 12:40 → EMEROOARM 12:40 → SUATTDRO 14:12 → 2ANU 15:33 → SUATTDRO 05-28 17:48
PROVIDERS: ADMIT Student in an Organized Health Care Education/Training Program; ATTEND Internal Medicine

== ENCOUNTER 2021-08-13 21:01 | Observation (INO) ==
[2021-08-13] MEDS ORDERED: Naloxone 0.4 MG/ML INJ IVP PRN (23:50)
[2021-08-13] MEDS ORDERED: Melatonin 3 MG TABLET PO PRN (23:50)
[2021-08-13] MEDS ORDERED: MOM Conc 10 ML UD.LIQ PO PRN (23:50)
[2021-08-13] MEDS ORDERED: Acetaminophen 325 MG TABLET PO PRN (23:50)
[2021-08-13] MEDS ORDERED: Ondansetron 4 MG/2 ML VIAL IVP PRN (23:50)
[2021-08-14 02:11] LABS: Basophils % 0.3 %; Eosinophils # 0.1 K/mcL (0.0-0.6); Eosinophils % 0.7 %; Hematocrit 40.1 % (37.5-50.1); Hemoglobin 13.3 g/dL (12.9-16.9); Immature Granulocytes % 0.4 % (0-4); Lymphocytes # 1.6 K/mcL (0.6-4.6); Lymphocytes % 16.7 %; Mean Corpuscular HGB Conc 33.2 g/dL (31.6-35.5); Mean Corpuscular Hemoglobin 33.1 pg (28.0-33.3); Mean Corpuscular Volume 99.8 fL (83.0-100.0); Mean Platelet Volume 11.4 fL (9.4-12.4); Monocytes # 0.9 K/mcL (0.0-1.3); Monocytes % 9.3 %; Neutrophils # 6.8 K/mcL (1.6-8.9); Platelet Count 221 K/mcL (140-400); Red Blood Count 4.02 M/mcL (4.19-5.50); Red Cell Distribution Width 14.2 % (11.5-14.5); Segmented Neutrophils % 72.6 %; White Blood Count 9.4 K/mcL (4.3-11.1)
[2021-08-14 02:25] LABS: Albumin 3.9 g/dL (3.5-5.7); Albumin/Globulin Ratio 1.6 (1.1-2.2); Bilirubin,Total 0.6 mg/dL (0.3-1.0); Calcium 8.8 mg/dL (8.6-10.3); Globulin 2.5 g/dL (2.4-3.5); Total Protein 6.4 g/dL (6.4-8.9)
[2021-08-14] MEDS ORDERED: Perflutren Lipid Microsphere 1.3 ML in 0.9 % Sodium Chloride 8.7 ML IVP PRN (06:14)
[2021-08-14 07:33] LABS: Magnesium 2.2 mg/dL (1.6-2.6); Phosphorous 3.2 mg/dL (2.7-4.5)
[2021-08-14 18:12] LABS: Bilirubin,Urine Negative (Negative); Blood,Urine Negative (Negative); Clarity,Urine Clear (Clear); Color,Urine Light-Yellow (Yellow); Glucose,Urine (UA) Normal (Normal); Ketones,Urine Negative (Negative); Leukocyte Esterase,Urine Negative (Negative); Nitrite,Urine Negative (Negative); PH,Urine 5.5 pH Units (5.0-8.0); Protein,Urine Trace mg/dL (Neg-Trace); Specific Gravity,Urine 1.021 (1.010-1.025); Urobilinogen,Urine Normal (Normal)
[2021-08-14 18:21] LABS: Amphetamine Screen,Urine Negative ng/mL (Cutoff=1000); Barbiturate Screen,Urine Negative ng/mL (Cutoff=200); Benzodiazepines Screen,Urine Negative ng/mL (Cutoff=200); Cannabinoid Screen,Urine Negative ng/mL (Cutoff = 50); Cocaine Screen,Urine Negative ng/mL (Cutoff= 300); Opiate Screen,Urine Negative ng/mL (Cutoff=300); Phencyclidine Screen,Urine Negative ng/mL (Cutoff=25)
[2021-08-15 02:52] LABS: Basophils # 0.1 K/mcL (0.0-0.2); Basophils % 0.7 %; Eosinophils # 0.2 K/mcL (0.0-0.6); Eosinophils % 2.4 %; Hematocrit 39.1 % (37.5-50.1); Hemoglobin 12.5 g/dL (12.9-16.9); Immature Granulocytes % 0.4 % (0-4); Lymphocytes # 2.5 K/mcL (0.6-4.6); Lymphocytes % 27.2 %; Mean Corpuscular Hemoglobin 32.1 pg (28.0-33.3); Mean Corpuscular Volume 100.3 fL (83.0-100.0); Mean Platelet Volume 11.3 fL (9.4-12.4); Monocytes % 10.6 %; Neutrophils # 5.3 K/mcL (1.6-8.9); Platelet Count 214 K/mcL (140-400); Red Cell Distribution Width 14.4 % (11.5-14.5); Segmented Neutrophils % 58.7 %
[2021-08-15 03:10] LABS: Albumin 3.6 g/dL (3.5-5.7); Albumin/Globulin Ratio 1.4 (1.1-2.2); Bilirubin,Total 0.3 mg/dL (0.3-1.0); Calcium 8.5 mg/dL (8.6-10.3); Globulin 2.5 g/dL (2.4-3.5); Potassium 4.3 mEq/L (3.5-5.1); Total Protein 6.1 g/dL (6.4-8.9)
[2021-08-15] MEDS: Folic Acid 1 MG TABLET PO SCH (10:01)
[2021-08-15] MEDS: amLODIPine 5 MG TABLET PO SCH (10:01)
[2021-08-15] MEDS: Cholecalciferol (D-3) 1,000 UNIT (25MCG) TABLET PO SCH (10:01)
[2021-08-15] MEDS: Cyanocobalamin (B-12) 1,000 MCG TABLET PO SCH (10:01)
[2021-08-15] MEDS: Aspirin Enteric Coated 81 MG Tablet PO SCH (10:01)
[2021-08-15] MEDS: 0.9 % Sodium Chloride 1,000 ML IVC SCH ×2 (10:02→18:44)
[2021-08-15] MEDS: Thiamine (B-1) 100 MG TABLET PO SCH (11:55)
[2021-08-16 02:48] VITALS: O2SAT 95
[2021-08-16 03:00] LABS: Basophils # 0.1 K/mcL (0.0-0.2); Basophils % 0.6 %; Eosinophils # 0.3 K/mcL (0.0-0.6); Eosinophils % 3.4 %; Hematocrit 37.7 % (37.5-50.1); Hemoglobin 11.9 g/dL (12.9-16.9); Immature Granulocytes % 0.4 % (0-4); Lymphocytes # 2.7 K/mcL (0.6-4.6); Lymphocytes % 29.2 %; Mean Corpuscular HGB Conc 31.6 g/dL (31.6-35.5); Mean Corpuscular Hemoglobin 32.4 pg (28.0-33.3); Mean Corpuscular Volume 102.7 fL (83.0-100.0); Mean Platelet Volume 11.4 fL (9.4-12.4); Monocytes # 1.1 K/mcL (0.0-1.3); Monocytes % 11.3 %; Neutrophils # 5.1 K/mcL (1.6-8.9); Platelet Count 190 K/mcL (140-400); Red Blood Count 3.67 M/mcL (4.19-5.50); Red Cell Distribution Width 14.3 % (11.5-14.5); Segmented Neutrophils % 55.1 %; White Blood Count 9.3 K/mcL (4.3-11.1)
[2021-08-16 03:16] LABS: Albumin 3.5 g/dL (3.5-5.7); Albumin/Globulin Ratio 1.4 (1.1-2.2); Bilirubin,Total 0.4 mg/dL (0.3-1.0); Globulin 2.5 g/dL (2.4-3.5); Potassium 4.4 mEq/L (3.5-5.1)
[2021-08-16 07:23] VITALS: TEMP 98.2
[2021-08-16 08:03] VITALS: BP 119/78; PULSE 52
[2021-08-16] MEDS: Aspirin Enteric Coated 81 MG Tablet PO SCH (08:05)
[2021-08-16] MEDS: Thiamine (B-1) 100 MG TABLET PO SCH (08:05)
[2021-08-16] MEDS: Cholecalciferol (D-3) 1,000 UNIT (25MCG) TABLET PO SCH (08:06)
[2021-08-16] MEDS: amLODIPine 5 MG TABLET PO SCH (08:06)
[2021-08-16] MEDS: Folic Acid 1 MG TABLET PO SCH (08:06)
[2021-08-16] MEDS: Cyanocobalamin (B-12) 1,000 MCG TABLET PO SCH (08:06)
== END 2021-08-16 14:55 | disposition home or self-care (01) ==
LOC: 3BNU
PROVIDERS: ADMIT Internal Medicine; ATTEND Internal Medicine